=== PATIENT | male | born 1970 | race Caucasian/White ===

== ENCOUNTER 2016-11-04 22:15 | Emergency (ER) | payer SELFPAY ==
[~2016-11-04] VITALS: Ht 182.8 cm; Wt 89.8 kg
[~2016-11-04 22:15] MED LIST: FLEXERIL10 MG PO; MOTRIN800 MG PO; VICODIN 5/500 505 MG PO
[2016-11-05] MEDS ORDERED: CLINDAMYCIN HC300 MG PO (00:18)
== END 2016-11-05 00:49 | disposition home or self-care (01) ==
LOC: ED 22:15
DX: K02.9 Dental caries, unspecified (principal); F17.200 Nicotine dependence, unspecified, uncomplicated

== ENCOUNTER 2018-09-20 12:00 | Emergency (ER) | payer SELFPAY ==
[~2018-09-20] VITALS: Ht 182.8 cm; Wt 92.1 kg
[~2018-09-20 12:00] MED LIST changes: +CLINDAMYCIN HC300 MG PO
[2018-09-20 13:01] LABS: BILIRUBIN NEGATIVE (NEGATIVE); BLOOD 1+ (NEGATIVE); CLARITY SL CLOUDY (CLEAR); COLOR YELLOW (YELLOW); GLUCOSE NEGATIVE (NEGATIVE); KETONE NEGATIVE (NEGATIVE); LEUKO ESTERASE NEGATIVE (NEGATIVE); NITRITE NEGATIVE (NEGATIVE); SPECIFIC GRAVITY >= 1.030 (1.005-1.030); UROBILINOGEN 0.2 E.U./dl (0.2-1.0)
[2018-09-20 13:24] LABS: BACTERIA TRACE; EPITHELIAL CELLS 0-2; MUCOUS 2+; WBC 0-2 wbc/hpf (0-5)
[2018-09-20] MEDS ORDERED: Motrin,Rufen800 MG PO (15:42)
== END 2018-09-20 19:12 | disposition home or self-care (01) ==
LOC: ED 12:00
PROVIDERS: Emergency Medicine
DX: S39.013A Strain of muscle, fascia and tendon of pelvis, initial encounter (principal); Z88.0 Allergy status to penicillin; X50.9XXA Other and unspecified overexertion or strenuous movements or postures, initial encounter; Y93.89 Activity, other specified; Y92.89 Other specified places as the place of occurrence of the external cause; Y99.8 Other external cause status

== ENCOUNTER 2024-10-21 17:14 | Emergency (ER) | payer SELFPAY ==
[~2024-10-21] VITALS: Ht 177.8 cm; Wt 106.6 kg
[~2024-10-21 17:14] MED LIST changes: +Motrin,Rufen800 MG PO
[2024-10-21] MEDS ORDERED: Ciprofloxacin Hydrochloride 0.3% OPHTHLAMIC BOTTLE OPH ONE (18:00)
== END 2024-10-21 18:03 | disposition home or self-care (01) ==
LOC: ED 17:14
DX: S05.01XA Injury of conjunctiva and corneal abrasion without foreign body, right eye, initial encounter (principal); Z88.0 Allergy status to penicillin; Z79.899 Other long term (current) drug therapy; X58.XXXA Exposure to other specified factors, initial encounter; Y93.89 Activity, other specified; Y92.89 Other specified places as the place of occurrence of the external cause; Y99.8 Other external cause status